=== PATIENT | female | born 1955 | race Caucasian/White ===

== ENCOUNTER 2017-10-09 07:08 | Day surgery (SDC) | payer OTHER, BC ==
--- NOTE | 2017-10-09 07:34 | ED Physician Documentation ---
PD HPI ABD PAIN - Stated complaint Stated Complaint: ABD PAIN - Chief complaint Chief Complaint: Abd Pain - History obtained from History obtained from: Patient - History of Present Illness Timing - onset: How many months ago (6) Timing - duration: Months (6) Timing - details: Intermittant Pain level max: 9 Pain level now: 6 Quality: Sharp, Other (burning) Location: RUQ, Epigastric Radiation: Right flank Associated symptoms: Nausea, Diarrhea. No: Fever, Vomiting, Hematemesis, Constipation, Melena, Dysuria - Additional information Additional information: 62 year old female with intermittent epigastric pain. States normal EGD 2 months ago. States worse with eating and worse lying down. Tylenol and advil helps the pain. Pain worsened 2 days ago. No fevers. Occasional diarrhea. States pain is 1-2 times per month. States may last a day or two. No blood in the stool. Review of Systems Ten Systems: 10 systems reviewed and negative Constitutional: denies: Fever, Chills Ears: denies: Ear pain Nose: denies: Rhinorrhea / runny nose, Congestion Cardiac: denies: Chest pain / pressure Respiratory: denies: Cough GI: denies: Vomiting : denies: Dysuria Skin: denies: Rash Musculoskeletal: denies: Neck pain, Back pain Neurologic: denies: Focal weakness, Numbness, Headache PD PAST MEDICAL HISTORY - Past Medical History Past Medical History: Yes Cardiovascular: Hypertension Endocrine/Autoimmune: HyPOthyroidism - Past Surgical History Past Surgical History: No - Present Medications Home Medications: Ambulatory Orders Medication Instructions Recorded Confirmed Estrogen,Con/M-Progest Acet 1 each PO DAILY 10/09/17 10/09/17 [Prempro 0.3 mg-1.5 mg Tablet] Levothyroxine Sodium 175 mcg PO DAILY 10/09/17 10/09/17 Lisinopril 20 mg PO DAILY 10/09/17 10/09/17 - Allergies Allergies/Adverse Reactions: Allergies Allergy/AdvReac Type Severity Reaction Status Date / Time No Known Drug Allergies Allergy Verified 10/09/17 07:18 - Living Situation Living Situation: reports: With family Living Arrangement: reports: At home - Social History Does the pt smoke?: No Does the pt have substance abuse?: No - Family History Family history: reports: Non contributory PD ED PE NORMAL - Vitals Vital signs reviewed: Yes - General General: Alert and oriented X 3, No acute distress - HEENT HEENT: Moist mucous membranes - Neck Neck: Supple, no meningeal sign - Cardiac Cardiac: RRR, Strong equal pulses - Respiratory Respiratory: No respiratory distress, Clear bilaterally - Abdomen Abdomen: Soft, Non distended, Other (TTP epigastric. no peritoneal signs. + lawson's sign) - Derm Derm: Warm and dry - Neuro Neuro: Alert and oriented X 3 - Psych Psych: Normal mood, Normal affect Results - Vitals Vitals: Vital Signs - 24 hr 10/09/17 10/09/17 10/09/17 07:16 11:19 14:55 Temperature 36.5 C 36.8 C Heart Rate 98 74 Respiratory 18 15 16 Rate Blood Pressure 169/98 H 134/84 H 129/79 O2 Saturation 100 98 99 10/09/17 15:01 Temperature 36.8 C Heart Rate Respiratory 16 Rate Blood Pressure 130/83 H O2 Saturation 100 Oxygen O2 Source Room air - Labs Labs: Laboratory Tests 10/09/17 10/09/17 10/09/17 07:45 07:45 10:25 WBC 4.3 L RBC 4.26 Hgb 13.8 Hct 39.9 MCV 93.8 MCH 32.4 H MCHC 34.6 RDW 12.6 Plt Count 245 MPV 7.0 L Neut # (Auto) 2.0 Lymph # (Auto) 1.6 [place] # (Auto) 0.4 Eos # (Auto) 0.1 Baso # (Auto) 0.1 Absolute Nucleated RBC 0.00 Nucleated RBC % 0.0 Sodium 135 Potassium 3.8 Chloride 103 Carbon Dioxide 24 Anion Gap 8.0 BUN 11 Creatinine 0.7 Estimated GFR (MDRD) 85 L Glucose 97 Calcium 9.3 Total Bilirubin 0.9 AST 20 ALT 18 Alkaline Phosphatase 49 Total Protein 7.0 Albumin 4.0 Globulin 3.0 Albumin/Globulin Ratio 1.3 Lipase 23 Urine Color LT. YELLOW Urine Clarity CLEAR Urine pH 6.0 Ur Specific Kimberly <=1.005 Urine Protein NEGATIVE Urine Glucose (UA) NEGATIVE Urine Ketones NEGATIVE Urine Occult Blood TRACE-LYSE Urine Nitrite NEGATIVE Urine Bilirubin NEGATIVE Urine Urobilinogen 0.2 (NORMAL) Ur Leukocyte Esterase NEGATIVE Ur Microscopic Review NOT INDICATED Urine Culture Comments NOT INDICATED - Rads (name of study) RUQ US Radiology: Prelim report reviewed, EMP read contemporaneously, See rad report ( Cholelithiasis with Lawson's sign, suggestive of acute cholecystitis. ) PD MEDICAL DECISION MAKING - ED course Complexity details: reviewed results, re-evaluated patient, considered differential, d/w patient, d/w professional employer consultant ED course: Patient is a 62-year-old female who presents with 6 months of intermittent abdominal pain, right upper quadrant. Constant for the past several days. Ultrasound is concerning for cholecystitis. Discussed the case with Dr. Muhammad , surgery on-call who will take her to the operating room. Given Mefoxin here. This document was made in part using voice recognition software. While efforts are made to proofread this document, sound alike and grammatical errors may occur. - Sepsis Event Vital Signs: Vital Signs - 24 hr 10/09/17 10/09/17 10/09/17 07:16 11:19 14:55 Temperature 36.5 C 36.8 C Heart Rate 98 74 Respiratory 18 15 16 Rate Blood Pressure 169/98 H 134/84 H 129/79 O2 Saturation 100 98 99 10/09/17 15:01 Temperature 36.8 C Heart Rate Respiratory 16 Rate Blood Pressure 130/83 H O2 Saturation 100 Oxygen O2 Source Room air Departure - Departure Disposition: ED Transfer to [facility] Clinical Impression: Acute cholecystitis Condition: Stable Discharge Date/Time: 10/09/17 13:00
[2017-10-09] MEDS ORDERED: ONDANSETRON 4 MG/2 ML VIAL IVP STA (07:50)
[2017-10-09] MEDS ORDERED: SODIUM CHLORIDE 0.9% 1,000 ML IV ONE ×2 (07:50)
[2017-10-09] MEDS ORDERED: HYDROmorphone 1 MG/ML CARPUJECT IVP STA (07:50)
[2017-10-09 07:55] LABS: BASOPHILS # (AUTO) 0.1 10^3/uL (0.0-0.1); BASOPHILS % (AUTO) 3.1 %; EOSINOPHILS # (AUTO) 0.1 10^3/uL (0.0-0.7); HGB - HEMOGLOBIN 13.8 g/dL (12.0-16.0); LYMPHOCYTES # (AUTO) 1.6 10^3/uL (1.5-3.5); LYMPHOCYTES % (AUTO) 37.5 %; MEAN CORPUSCULAR HEMOGLOBIN 32.4 pg (27.0-31.0); MEAN CORPUSCULAR HGB CONC 34.6 g/dL (32.0-36.0); MEAN CORPUSCULAR VOLUME 93.8 fL (81.0-99.0); MONOCYTES # (AUTO) 0.4 10^3/uL (0.0-1.0); MONOCYTES % (AUTO) 8.8 %; NEUTROPHILS % (AUTO) 47.6 %; PLT - PLATELET COUNT 245 10^3/uL (130-450); RED BLOOD COUNT 4.26 10^6/uL (4.20-5.40); RED CELL DISTRIBUTION WIDTH 12.6 % (12.0-15.0); WHITE BLOOD COUNT 4.3 x10^3/uL (4.8-10.8)
[2017-10-09 08:12] LABS: ALBUMIN/GLOBULIN RATIO 1.3 (1.0-2.2); BILIRUBIN,TOTAL 0.9 mg/dL (0.2-1.0); CALCIUM 9.3 mg/dL (8.5-10.3); CREATININE 0.7 mg/dL (0.4-1.0)
--- NOTE | 2017-10-09 10:37 | Ultrasound Report ---
Procedure Date: 10/09/2017 Accession Number: [id number] / [id number] Procedure: US - Abdomen Limited CPT Code: FULL RESULT: EXAM: ABDOMEN ULTRASOUND LIMITED, RUQ EXAM DATE: 10/09/2017 10:24 AM. CLINICAL HISTORY: RUQ pain, + lawson. COMPARISON: None. TECHNIQUE: Real-time scanning was performed with static images obtained. FINDINGS: Liver: Normal in size and echotexture. 18 cm. Main portal vein flow: Hepatopetal. Gallbladder: The gallbladder is packed with multiple stones. The gallbladder wall measures 3.9 mm. No pericholecystic fluid. Positive Lawson's sign. Biliary System: CBD measures 5.1 mm. No intrahepatic or extrahepatic ductal dilatation. Other: Right kidney measures 11 cm. IMPRESSION: Cholelithiasis with Lawson's sign, suggestive of acute cholecystitis. RADIA
[2017-10-09 10:40] LABS: BILIRUBIN,URINE NEGATIVE (NEGATIVE); GLUCOSE, URINE (UA) NEGATIVE (NEGATIVE); KETONES,URINE (UA) NEGATIVE (NEGATIVE); LEUKOCYTE ESTERASE, URINE NEGATIVE (NEGATIVE); NITRITE,URINE NEGATIVE (NEGATIVE); OCCULT BLOOD,URINE TRACE-LYSE (NEGATIVE); PROTEIN,URINE NEGATIVE (NEGATIVE); UROBILINOGEN,URINE 0.2 (NORMAL) E.U./dL (NORMAL)
[2017-10-09 10:43] LABS: CLARITY,URINE CLEAR (CLEAR)
[2017-10-09] MEDS ORDERED: cefOXitin 2 GM in SODIUM CHLORIDE 0.9% MINIBAG 100 ML IV STA (10:44)
[2017-10-09] MEDS ORDERED: metroNIDAZOLE 500 MG/100 ML 500 MG/100 ML BAG IV ONE (10:44)
[2017-10-09] MEDS ORDERED: PIPERACILLIN/TAZOBACTAM 3.375 GM in SODIUM CHLORIDE 0.9% MINIBAG 100 ML IV STA (10:44)
--- NOTE | 2017-10-09 12:39 | ANESTHESIA ---
Pre-Anesthesia VS, & Labs - Diagnosis cholelithiasis - Procedure Lap Concha Vital Signs: Temp Pulse Resp BP Pulse Ox 36.5 C 74 15 134/84 H 98 10/09/17 07:16 10/09/17 11:19 10/09/17 11:19 10/09/17 11:19 10/09/17 11:19 Height 5 ft 4 in Weight (kg) 65.317 kg Body Mass Index 24.7 - NPO >8 hours - Is Patient ?: No - Lab Results Lab results reviewed: No Fish Bones: 10/09/17 07:45 10/09/17 07:45 Home Medications and Allergies Home Medications: Ambulatory Orders Medication Instructions Recorded Confirmed Estrogen,Con/M-Progest Acet 1 each PO DAILY 10/09/17 10/09/17 [Prempro 0.3 mg-1.5 mg Tablet] Levothyroxine Sodium 175 mcg PO DAILY 10/09/17 10/09/17 Lisinopril 20 mg PO DAILY 10/09/17 10/09/17 Allergies/Adverse Reactions: Allergies Allergy/AdvReac Type Severity Reaction Status Date / Time No Known Drug Allergies Allergy Verified 10/09/17 07:18 Anes History & Medical History - Anesthetic History Anesthesia Complications: reports: No previous complications Family history of Anesthesia Complications: Denies Family history of Malignant Hyperthermia: Denies - Airway/Dental Dental: WNL Mallampati classification: II - Medical History Cardiovascular: reports: Hypertension Pulmonary: reports: None Gastrointestinal: reports: None Neuro: reports: None Musculoskeletal: reports: None Endocrine/Autoimmune: reports: HyPOthyroidism Smoking Status: Never smoker Psychosocial: reports: Cannabis - Surgical History Eyes Ears Nose Throat (EENT): Tonsil/Adenoidectomy Gynecologic: section Exam General: Oriented x3 Respiratory: Lungs clear Cardiovascular: Regular rate, No murmurs Mental/Cognitive Status: Alert/Oriented X3 Plan Anesthesia Type: General Consent for Operative Procedure(s) Verified and Reviewed: Yes Code Status: Attempt Resuscitation ASA classification: 2-Mild systemic disease Is this case an emergency?: Yes
[2017-10-09] MEDS ORDERED: BUPIVACAINE 0.25%-EPI 1:200000 PF 30 ML VIAL ONE (13:09)
[2017-10-09] MEDS ORDERED: LACTATED RINGERS 1,000 ML IV ONE ×2 (13:11→13:53)
[2017-10-09] MEDS ORDERED: fentaNYL 100 MCG/2 ML VIAL IVP ONE (13:30)
[2017-10-09] MEDS ORDERED: ROCURONIUM 50 MG/5 ML VIAL IVP ONE (13:30)
[2017-10-09] MEDS ORDERED: GLYCOPYRROLATE 1 MG/5 ML VIAL IVP ONE (13:30)
[2017-10-09] MEDS ORDERED: ONDANSETRON 4 MG/2 ML VIAL IVP ONE (13:30)
[2017-10-09] MEDS ORDERED: LIDOCAINE-MPF 2% 5 ML VIAL IM ONE (13:30)
[2017-10-09] MEDS ORDERED: PROPOFOL 200 MG/20 ML VIAL IVP ONE (13:30)
[2017-10-09] MEDS ORDERED: KETOROLAC 30 MG/ML VIAL IVP ONE (13:30)
[2017-10-09] MEDS ORDERED: ACETAMINOPHEN 1,000 MG/100 ML 100 ML IV ONE (13:30)
[2017-10-09] MEDS ORDERED: LIDOCAINE 2% 50 ML MDV IV ONE (13:30)
[2017-10-09] MEDS ORDERED: DEXAMETHASONE 4 MG/ML VIAL IVP ONE (13:30)
[2017-10-09] MEDS ORDERED: BUPIVACAINE 0.25%-EPI 1:200000 PF 30 ML VIAL SUBQ ONE ×2 (13:49)
[2017-10-09 15:41] VITALS: BP 126/76
--- NOTE | 2017-10-10 08:33 | OPERATIVE REPORT ---
DATE OF SERVICE: 10/09/2017 Physician: Frandy Muhammad MD PRIMARY CARE PROVIDER: PREOPERATIVE DIAGNOSIS: Acute cholecystitis. POSTOPERATIVE DIAGNOSIS: Acute cholecystitis. PROCEDURE PERFORMED: Laparoscopic cholecystectomy. OPERATING SURGEON: Frandy Muhammad MD ANESTHESIA: General. INDICATIONS FOR PROCEDURE: Patient is a 62-year-old female who presents with epigastric pain. She has been having this on and off for the last couple of months. However, over the last two days, the pain has become continuous. Because of the pain, she went to the emergency room to be evaluated. Patient had an ultrasound of the right upper quadrant, which revealed a gallbladder containing numerous gallstones and a positive Lawson sign. Patient had normal white blood cell count and liver function tests. However, she continued to have pain in the epigastric region along with tenderness and, therefore, clinically she had acute cholecystitis. FINDINGS AT SURGERY: Patient had acutely distended, inflamed gallbladder. It contained numerous gallstones. There was a gallstone lodged in the neck of the gallbladder. PROCEDURE: After informed consent was obtained, the patient was taken to the operating room and placed in supine position. General endotracheal anesthesia was administered. Patient's abdomen was then prepped and draped in the usual sterile fashion. Prior to making any abdominal incisions, the skin was injected with local anesthesia. An infraumbilical incision was then made in the skin using a scalpel. The 5-mm Optiview trocar was then inserted through the incision through the fascia and into the abdominal cavity under direct vision. The abdomen was then insufflated. Looking inside, no injuries were noted. Three 5-mm ports were placed in the right upper quadrant and a 5 mm port at the umbilical area was then switched to a 12 mm port. Patient's gallbladder was acutely inflamed. The gallbladder fundus was then grasped and lifted anteriorly and superiorly exposing the triangle of Calot. The peritoneum was then scored in the triangle, allowing access to the cystic duct and cystic artery. The cystic duct and artery were then isolated. The cystic artery was clipped proximally and distally and then being divided. A critical view had been obtained. The cystic duct was clipped proximally and distally and then being divided between the clips. Gallbladder was then dissected off the gallbladder bed using electrocautery, placed in an Endobag and removed through the umbilical port. Right upper quadrant was thoroughly irrigated until the return fluid was clear. No bleeding was noted. The ports were then removed. No bleeding was noted at the port sites, with the abdomen then being desufflated. The umbilical fascial defect was closed using 0 Vicryl suture. Skin incisions were closed using 4-0 Monocryl subcuticular stitch. Dermabond was then applied to the incision sites. Patient was then awakened, extubated, and taken from the operating room in stable condition. ESTIMATED BLOOD LOSS: Less than 5 mL. COMPLICATIONS: None. CONDITION OF THE PATIENT AT END OF PROCEDURE: Stable. SPECIMENS: Gallbladder and gallstones. DRAINS, PACKS: None. CLASSIFICATION OF WOUND: Clean, contaminated. TD: 10/09/2017 15:06
== END 2017-10-09 12:21 | disposition home or self-care (01) ==
LOC: ED 07:08 → SDS 12:20 → ED 13:00
PROVIDERS: ATTEND Surgery
PROC: 0FT44ZZ Resection of Gallbladder, Percutaneous Endoscopic Approach (ICD-10-PCS; principal; 2017-10-09 13:00)
DX: K80.00 Calculus of gallbladder with acute cholecystitis without obstruction (principal); I10 Essential (primary) hypertension; E03.9 Hypothyroidism, unspecified
CPT/HCPCS: 36415; 47562; 76705; 80053; 81003; 83690; 85025; 96361; 96365; 96375; 99283; 99284; J0131; J1170; J7120; 81001; 87086; 88304